=== PATIENT | male | born 1965 | race Caucasian/White ===

== ENCOUNTER 2019-02-26 16:33 | Outpatient (CLI) | payer OTHER, SELFPAY ==
--- NOTE | 2019-02-26 16:32 | DI.RAD_ITS ---
SYMPTOM/DIAGNOSIS: NUMBNESS OF HAND, S/P FALL, R20.0, FALLING INJURY, W19.XXXA RIGHT WRIST: Three views. No priors. There is a nondisplaced transverse fracture through the distal metaphysis of the right radius. No other fracture or dislocation is seen. There is mild soft tissue swelling about the wrist. IMPRESSION: Nondisplaced distal right radial fracture. CERVICAL SPINE: Odontoid, AP, lateral and bilateral oblique views. No priors. The odontoid is intact. The lateral masses are well aligned. There is normal alignment of the cervical spine. No acute fractures or subluxations are seen. No significant neural encroachment is present. The prevertebral soft tissues are unremarkable. IMPRESSION: No acute fracture or subluxation in the cervical spine.
[2019-02-26 17:38] LABS: Iron 17 ug/dL (50-175); Total Iron Binding Capacity 489 ug/dL (250-450); Transferrin Sat 3 % (20-55)
[2019-02-26 17:51] LABS: Ferritin 10 ng/mL (8-388)
== END 2019-02-26 16:53 ==
PROVIDERS: Visit Provider Family Medicine
DX: D64.9 Anemia, unspecified (principal); R20.0 Anesthesia of skin; W19.XXXA Unspecified fall, initial encounter; M25.531 Pain in right wrist; M79.89 Other specified soft tissue disorders; S52.501A Unspecified fracture of the lower end of right radius, initial encounter for closed fracture
CPT/HCPCS: 36415; 72050; 73110; 82728; 83540; 83550

== ENCOUNTER 2019-03-06 12:10 | Outpatient (CLI) | payer OTHER, SELFPAY ==
[2019-03-06 15:10] LABS: TSH (W/Ref FT4) 0.79 uIU/mL (0.358-3.74); Vitamin B12 127 pg/mL (193-986)
== END 2019-03-06 12:30 ==
PROVIDERS: PCP Family Medicine; Visit Provider Family Medicine
DX: D64.9 Anemia, unspecified (principal); R53.83 Other fatigue
CPT/HCPCS: 36415; 82607; 82728; 83540; 83550; 84443; 85025

== ENCOUNTER 2019-03-19 01:36 | Outpatient (RCR) | payer OTHER, SELFPAY ==
[2019-03-10] MEDS: Normal Saline Flush 10 ML SYR IVP (12:00)
== END 2019-03-19 23:59 | disposition home or self-care (01) ==
LOC: INF 01:36
PROVIDERS: PCP Family Medicine; Visit Provider Internal Medicine
DX: D50.9 Iron deficiency anemia, unspecified (principal)
CPT/HCPCS: 96365; J1756

== ENCOUNTER 2019-03-31 00:58 | Outpatient (RCR) | payer OTHER, SELFPAY ==
[2019-03-24] MEDS: Normal Saline Flush 10 ML SYR IVP (12:10)
[2019-03-31] MEDS: Normal Saline Flush 10 ML SYR IVP (12:31)
== END 2019-04-19 23:59 | disposition home or self-care (01) ==
LOC: INF 00:58
PROVIDERS: PCP Family Medicine; Visit Provider Internal Medicine
DX: D50.9 Iron deficiency anemia, unspecified (principal)
CPT/HCPCS: 96365; 96366; J1756

== ENCOUNTER 2020-05-20 17:26 | Outpatient (REF) | payer OTHER, SELFPAY ==
[2020-05-20 13:38] LABS: Abs Immature Grans 0.01 10^3/uL (0.0-0.06); Absolute Basophil Count 0.02 10^3/uL (0.0-0.2); Absolute Eosinophil Count 0.25 10^3/uL (0.0-0.7); Absolute Lymphocyte Count 1.33 10^3/uL (1.2-3.4); Absolute Monocyte Count 0.34 10^3/uL (0.1-0.8); Absolute Neutrophil Count 2.82 10^3/uL (1.2-6.7); Basophils % 0.4; Eosinophils % 5.2; HCT 41.2 % (40.0-50.0); HGB 13.4 g/dL (13.5-17.5); Immature Grans % 0.2; Lymphocytes % 27.9; MCH 27.5 pg (27.0-33.0); MCHC 32.5 % (32.0-36.0); MCV 84.4 fL (80-95); MPV 9.9 fL (8.0-11.0); Monocytes % 7.1; Neutrophils % 59.2; Nucleated RBC 0 %; Platelet Count 278 10^3/uL (130-400); RBC 4.88 10^6/uL (4.36-5.78); RDW 13.5 % (11.8-14.1); RDW-SD 41.4 fL; WBC 4.77 10^3/uL (4.4-10.8)
[2020-05-20 13:59] LABS: Total Iron Binding Capacity 436 ug/dL (250-450)
[2020-05-20 14:21] LABS: ALT 30 U/L (16-63); AST 18 U/L (15-37); Albumin 3.5 g/dL (3.4-5.0); Alkaline Phosphatase 53 U/L (46-116); Anion Gap 6.5 mmol/L (3-11); BUN 11 mg/dL (7-18); Bilirubin, Total 0.4 mg/dL (0.2-1.0); CO2 29.5 mmol/L (21.0-32.0); CREATININE 0.88 mg/dL (0.70-1.30); Calcium 8.7 mg/dL (8.5-10.1); Calculated LDL 122 mg/dL (<100); Chloride 107 mmol/L (98-107); Cholesterol 199 mg/dL (<200); Ferritin 8 ng/mL (26-388); Glucose 99 mg/dL (74-106); HDL Cholesterol 59 mg/dL (40-60); Potassium 4.1 mmol/L (3.5-5.1); Sodium 143 mmol/L (136-145); Total Protein 6.4 g/dL (6.4-8.2); Triglyceride 92 mg/dL (<150); Vitamin B12 119 pg/mL (193-986)
[2020-05-20 21:40] LABS: PSA, Screening 0.4 ng/mL (0.0-3.5)
== END 2020-05-20 17:46 ==
LOC: LBN 17:26
PROVIDERS: PCP Nurse Practitioner Family; Visit Provider Nurse Practitioner Family
DX: D50.9 Iron deficiency anemia, unspecified (principal); E53.8 Deficiency of other specified B group vitamins; E66.09 Other obesity due to excess calories; Z12.5 Encounter for screening for malignant neoplasm of prostate
CPT/HCPCS: 80053; 80061; 84153; 82607; 82728; 83036; 83550; 85025

== ENCOUNTER 2020-06-07 01:34 | Outpatient (RCR) | payer OTHER, SELFPAY ==
[2020-05-25] MEDS: IRON SUCROSE COMPLEX 200 MG in Normal Saline 100 ML 440 MG IVPB (08:47)
[2020-05-25] MEDS: Normal Saline Flush 10 ML SYR IVP (08:54)
[2020-05-28] MEDS: IRON SUCROSE COMPLEX 200 MG in Normal Saline 100 ML 440 MG IVPB (10:48)
[2020-05-28] MEDS: Normal Saline Flush 10 ML SYR IVP (10:48)
[2020-06-01] MEDS: Normal Saline Flush 10 ML SYR IVP (13:54)
[2020-06-01] MEDS: IRON SUCROSE COMPLEX 200 MG in Normal Saline 100 ML 440 MG IVPB (13:54)
[2020-06-03] MEDS: IRON SUCROSE COMPLEX 200 MG in Normal Saline 100 ML 440 MG IVPB (10:35)
[2020-06-03] MEDS: Normal Saline Flush 10 ML SYR IVP (10:35)
[2020-06-07] MEDS: Normal Saline Flush 10 ML SYR IVP (10:17)
[2020-06-07] MEDS: IRON SUCROSE COMPLEX 200 MG in Normal Saline 100 ML 440 MG IVPB (10:17)
== END 2020-06-19 23:59 | disposition home or self-care (01) ==
LOC: INF 01:34
PROVIDERS: PCP Nurse Practitioner Family; Visit Provider Nurse Practitioner Family
DX: D50.9 Iron deficiency anemia, unspecified (principal)
CPT/HCPCS: 96365; J1756

== ENCOUNTER 2020-06-14 11:27 | Outpatient (REF) | payer OTHER, SELFPAY ==
[2020-06-14 13:31] LABS: HCT 45.8 % (40.0-50.0); HGB 15.2 g/dL (13.5-17.5); MCH 28.1 pg (27.0-33.0); MCHC 33.2 % (32.0-36.0); MCV 84.7 fL (80-95); MPV 9.6 fL (8.0-11.0); Platelet Count 272 10^3/uL (130-400); RBC 5.41 10^6/uL (4.36-5.78); RDW 15.9 % (11.8-14.1); RDW-SD 48.9 fL; WBC 4.98 10^3/uL (4.4-10.8)
[2020-06-14 13:33] LABS: Total Iron Binding Capacity 354 ug/dL (250-450)
[2020-06-14 13:47] LABS: ALT 24 U/L (16-63); AST 17 U/L (15-37); Albumin 3.9 g/dL (3.4-5.0); Alkaline Phosphatase 69 U/L (46-116); Anion Gap 8.2 mmol/L (3-11); BUN 16 mg/dL (7-18); Bilirubin, Total 0.6 mg/dL (0.2-1.0); CO2 24.8 mmol/L (21.0-32.0); CREATININE 1.03 mg/dL (0.70-1.30); Calcium 8.9 mg/dL (8.5-10.1); Chloride 103 mmol/L (98-107); Ferritin 199 ng/mL (26-388); Glucose 114 mg/dL (74-106); Potassium 4.4 mmol/L (3.5-5.1); Sodium 136 mmol/L (136-145); Total Protein 7.1 g/dL (6.4-8.2)
== END 2020-06-14 11:47 ==
LOC: LBN 11:27
PROVIDERS: PCP Nurse Practitioner Family; Visit Provider Nurse Practitioner Family
DX: D50.9 Iron deficiency anemia, unspecified (principal)
CPT/HCPCS: 80053; 85027; 82728; 83550

== ENCOUNTER 2020-07-22 10:14 | Outpatient (REF) | payer OTHER, SELFPAY ==
[2020-07-22 15:21] LABS: HCT 45.2 % (40.0-50.0); HGB 15.1 g/dL (13.5-17.5); MCH 29.3 pg (27.0-33.0); MCHC 33.4 % (32.0-36.0); MCV 87.8 fL (80-95); Platelet Count 254 10^3/uL (130-400); RBC 5.15 10^6/uL (4.36-5.78); RDW 16.6 % (11.8-14.1); RDW-SD 52.6 fL; WBC 5.22 10^3/uL (4.4-10.8)
[2020-07-22 15:36] LABS: Total Iron Binding Capacity 343 ug/dL (250-450)
[2020-07-22 15:49] LABS: Ferritin 102 ng/mL (26-388)
== END 2020-07-22 10:34 ==
LOC: LBN 10:14
PROVIDERS: PCP Nurse Practitioner Family; Visit Provider Nurse Practitioner Family
DX: D50.9 Iron deficiency anemia, unspecified (principal)
CPT/HCPCS: 84402; 84403; 85027; 82728; 83550

== ENCOUNTER 2020-07-22 15:37 | Outpatient (CLI) | payer OTHER, SELFPAY ==
[2020-07-27 12:50] LABS: Testosterone, Free 5.37 ng/dL (4.06-15.6); Testosterone, Total 244 ng/dL (240-950)
== END 2020-07-22 15:57 ==
PROVIDERS: PCP Nurse Practitioner Family; Visit Provider Nurse Practitioner Family
DX: D50.9 Iron deficiency anemia, unspecified (principal); R53.83 Other fatigue
CPT/HCPCS: 84402; 84403

== ENCOUNTER 2020-09-23 15:03 | Outpatient (REF) | payer OTHER, SELFPAY ==
[2020-09-23 13:42] LABS: HCT 44.2 % (40.0-50.0); HGB 15.5 g/dL (13.5-17.5); MCH 31.6 pg (27.0-33.0); MCHC 35.1 % (32.0-36.0); MCV 90.2 fL (80-95); MPV 9.1 fL (8.0-11.0); Platelet Count 271 10^3/uL (130-400); RDW 12.8 % (11.8-14.1); RDW-SD 41.8 fL; WBC 5.15 10^3/uL (4.4-10.8)
[2020-09-23 14:34] LABS: Ferritin 101 ng/mL (26-388); Vitamin B12 475 pg/mL (193-986)
[2020-09-23 14:40] LABS: Total Iron Binding Capacity 382 ug/dL (250-450)
[2020-09-23 15:03] LABS: Vitamin D 25 Total 30.3 ng/ml (30-100)
[2020-09-23 21:40] LABS: FSH 52.2 mIU/mL (1.4-18.1)
[2020-09-23 21:41] LABS: LH 18.7 mIU/mL (1.5-9.3)
[2020-09-26 14:51] LABS: Testosterone, Free 4.71 ng/dL (4.06-15.6); Testosterone, Total 248 ng/dL (240-950)
== END 2020-09-23 15:04 | disposition home or self-care (01) ==
LOC: NCHCN 15:03
PROVIDERS: PCP Nurse Practitioner Family; Visit Provider Nurse Practitioner Family
DX: R79.89 Other specified abnormal findings of blood chemistry (principal); D50.9 Iron deficiency anemia, unspecified; E53.8 Deficiency of other specified B group vitamins; F32.9 Major depressive disorder, single episode, unspecified
CPT/HCPCS: 82306; 84402; 84403; 85027; 82607; 82728; 83001; 83002; 83550

== ENCOUNTER 2020-10-08 02:38 | Outpatient (CLI) | payer OTHER, SELFPAY ==
[2020-10-13 10:11] LABS: Testosterone, Free 5.83 ng/dL (4.06-15.6); Testosterone, Total 265 ng/dL (240-950)
== END 2020-10-08 02:39 | disposition home or self-care (01) ==
LOC: LBO 02:39
PROVIDERS: PCP Nurse Practitioner Family; Visit Provider Nurse Practitioner Family
DX: E29.1 Testicular hypofunction (principal)
CPT/HCPCS: 36415; 84402; 84403

== ENCOUNTER 2020-10-15 02:12 | Outpatient (CLI) | payer OTHER, SELFPAY ==
[2020-10-20 11:32] LABS: Testosterone, Free 3.67 ng/dL (4.06-15.6); Testosterone, Total 204 ng/dL (240-950)
== END 2020-10-15 02:13 | disposition home or self-care (01) ==
LOC: LBO 02:12
PROVIDERS: PCP Nurse Practitioner Family; Visit Provider Nurse Practitioner Family
DX: E29.1 Testicular hypofunction (principal)
CPT/HCPCS: 36415; 84402; 84403

== ENCOUNTER 2020-12-08 01:24 | Outpatient (CLI) | payer OTHER, SELFPAY ==
--- NOTE | 2020-12-08 08:00 | DI.DEXA_ITS ---
EXAM: XR DEXA BONE DENSITY W/WO DOMINICK CLINICAL HISTORY: hx of multiple fractures, male hypogonadism,E29.1 TECHNIQUE: Routine DEXA evaluation of the lumbar spine, hip, or forearm. COMPARISON: No exams were available for comparison FINDINGS: Performed on a Hologic unit. Lateral image: No compression fracture evident. Lumbar Spine total T-score: -1.2 Hip total T-score:-0.7 Independent reading at the femoral neck yields a T-score of -1.6 IMPRESSION: Bone mineral density measures in the osteopenia range. Fracture risk is moderate. Note: Any spine fracture indicates 5x risk for subsequent spine fracture and 2x risk for subsequent h ip fracture. World Health Organization criteria for BMD interpretation classify patients: Normal...... T- Score at or above -1.0 Osteopenic... T- Score between -1.0 and -2.5 Osteoporosis... T-Score at or below -2.5
== END 2020-12-08 01:44 ==
PROVIDERS: PCP Nurse Practitioner Family; Visit Provider Nurse Practitioner Family
DX: M85.88 Other specified disorders of bone density and structure, other site (principal); E29.1 Testicular hypofunction; Z87.81 Personal history of (healed) traumatic fracture
CPT/HCPCS: 77080

== ENCOUNTER 2021-01-18 03:01 | Outpatient (CLI) | payer OTHER, SELFPAY ==
[2021-01-18 08:42] LABS: HCT 47.1 % (40.0-50.0); HGB 15.9 g/dL (13.5-17.5); MCH 28.9 pg (27.0-33.0); MCHC 33.8 % (32.0-36.0); MCV 85.6 fL (80-95); MPV 9.1 fL (8.0-11.0); Platelet Count 289 10^3/uL (130-400); RDW 13.4 % (11.8-14.1); WBC 5.26 10^3/uL (4.4-10.8)
[2021-01-18 09:17] LABS: Total Iron Binding Capacity 379 ug/dL (250-450)
[2021-01-18 09:30] LABS: ALT 21 U/L (16-63); AST 17 U/L (15-37); Albumin 3.5 g/dL (3.4-5.0); Alkaline Phosphatase 77 U/L (46-116); Anion Gap 9.5 mmol/L (3-11); BUN 10 mg/dL (7-18); Bilirubin, Total 0.5 mg/dL (0.2-1.0); CO2 27.5 mmol/L (21.0-32.0); CREATININE 0.9 mg/dL (0.70-1.30); Calculated LDL 123 mg/dL (<100); Chloride 106 mmol/L (98-107); Cholesterol 206 mg/dL (<200); Ferritin 19 ng/mL (26-388); Glucose 95 mg/dL (74-106); HDL Cholesterol 59 mg/dL (40-60); Potassium 4.4 mmol/L (3.5-5.1); Sodium 143 mmol/L (136-145); Total Protein 6.8 g/dL (6.4-8.2); Triglyceride 120 mg/dL (<150)
[2021-01-18 09:39] LABS: Calcium 8.7 mg/dL (8.5-10.1)
[2021-01-19 11:27] LABS: Lyme Ab w Rflx to Lyme Confirm Negative (Negative)
[2021-01-24 09:33] LABS: Testosterone, Free 15.1 ng/dL (3.87-14.7); Testosterone, Total 488 ng/dL (240-950)
[2021-01-24 10:10] LABS: Anaplasma phagocytophilum Negative (Negative); B. miyamotoi PCR Negative (Negative); Babesia divergens/MO-1 Negative (Negative); Babesia duncani Negative (Negative); Babesia microti Negative (Negative); Ehrlichia chaffeensis Negative (Negative); Ehrlichia ewingii/canis Negative (Negative); Ehrlichia muris eauclairensis Negative (Negative)
== END 2021-01-18 03:02 | disposition home or self-care (01) ==
LOC: LBO 03:01
PROVIDERS: PCP Nurse Practitioner Family; Visit Provider Nurse Practitioner Family
DX: E29.1 Testicular hypofunction (principal); D50.9 Iron deficiency anemia, unspecified; R53.83 Other fatigue; Z12.5 Encounter for screening for malignant neoplasm of prostate
CPT/HCPCS: 36415; 80053; 80061; 84153; 84402; 84403; 85027; 87798; 82728; 83550; 86618

== ENCOUNTER 2021-01-19 09:20 | Outpatient (REF) | payer OTHER, SELFPAY ==
[2021-01-19 10:38] LABS: Iron 44 ug/dL (65-175)
== END 2021-01-19 09:21 | disposition home or self-care (01) ==
LOC: LBN 09:20
PROVIDERS: PCP Nurse Practitioner Family; Visit Provider Nurse Practitioner Family
DX: D50.9 Iron deficiency anemia, unspecified (principal)
CPT/HCPCS: 83540

== ENCOUNTER 2021-05-02 04:10 | Outpatient (CLI) | payer OTHER, SELFPAY ==
[2021-05-02 07:34] LABS: HCT 47.3 % (40.0-50.0); HGB 15.5 g/dL (13.5-17.5); MCH 28.5 pg (27.0-33.0); MCHC 32.8 % (32.0-36.0); MCV 87.1 fL (80-95); MPV 8.8 fL (8.0-11.0); Platelet Count 245 10^3/uL (130-400); RBC 5.43 10^6/uL (4.36-5.78); RDW 13.5 % (11.8-14.1); RDW-SD 43.5 fL; WBC 5.67 10^3/uL (4.4-10.8)
[2021-05-02 08:37] LABS: Iron 84 ug/dL (65-175); Total Iron Binding Capacity 400 ug/dL (250-450)
[2021-05-02 08:48] LABS: ALT 22 U/L (16-63); AST 18 U/L (15-37); Albumin 3.6 g/dL (3.4-5.0); Alkaline Phosphatase 70 U/L (46-116); BUN 12 mg/dL (7-18); Bilirubin, Total 0.7 mg/dL (0.2-1.0); CREATININE 1.1 mg/dL (0.70-1.30); Calcium 8.7 mg/dL (8.5-10.1); Chloride 106 mmol/L (98-107); Ferritin 19 ng/mL (26-388); Glucose 102 mg/dL (74-106); Potassium 4.1 mmol/L (3.5-5.1); Sodium 143 mmol/L (136-145); Total Protein 6.7 g/dL (6.4-8.2)
[2021-05-02 17:08] LABS: LH 0.4 mIU/mL (1.5-9.3)
[2021-05-07 16:33] LABS: Testosterone, Total 761 ng/dL (240-950)
== END 2021-05-02 04:11 | disposition home or self-care (01) ==
LOC: LBO 04:11
PROVIDERS: PCP Nurse Practitioner Family; Visit Provider Nurse Practitioner Family
DX: D50.9 Iron deficiency anemia, unspecified (principal); E29.1 Testicular hypofunction
CPT/HCPCS: 36415; 80053; 84403; 85027; 82728; 83002; 83540; 83550

== ENCOUNTER 2021-06-13 00:48 | Outpatient (RCR) | payer OTHER, SELFPAY ==
[2021-06-02] MEDS: IRON SUCROSE COMPLEX 200 MG in Normal Saline 100 ML 440 MG IVPB (11:13)
[2021-06-02] MEDS: Normal Saline Flush 10 ML SYR IVP (11:13)
[2021-06-06] MEDS: Normal Saline Flush 10 ML SYR IVP (11:08)
[2021-06-06] MEDS: IRON SUCROSE COMPLEX 200 MG in Normal Saline 100 ML 440 MG IVPB (11:23)
[2021-06-08] MEDS: IRON SUCROSE COMPLEX 200 MG in Normal Saline 100 ML 440 MG IVPB (10:49)
[2021-06-08] MEDS: Normal Saline Flush 10 ML SYR IVP (10:52)
[2021-06-10] MEDS: Normal Saline Flush 10 ML SYR IVP (11:05)
[2021-06-10] MEDS: IRON SUCROSE COMPLEX 200 MG in Normal Saline 100 ML 440 MG IVPB (11:08)
[2021-06-13] MEDS: Normal Saline Flush 10 ML SYR IVP (11:03)
[2021-06-13] MEDS: IRON SUCROSE COMPLEX 200 MG in Normal Saline 100 ML 440 MG IVPB (11:03)
== END 2021-06-19 23:59 | disposition home or self-care (01) ==
LOC: INF 00:48
PROVIDERS: PCP Nurse Practitioner Family; Visit Provider Nurse Practitioner Acute Care
DX: D50.9 Iron deficiency anemia, unspecified (principal)
CPT/HCPCS: 96365; J1756

== ENCOUNTER 2021-07-08 09:42 | Outpatient (CLI) | payer OTHER, SELFPAY ==
--- NOTE | 2021-07-08 09:45 | RT.EKG_ITS ---
APPROVED REPORT Exam: Resting ECG Reason for Exam: Clearance for ECT Patient Location: O HR:83 bpm ECG Measurements Heart Rate 83 AXIS LA 157 P 47 QRSd 88 QRS 33 QT 358 T 30 QTc 418 Conclusion Sinus rhythm...normal P axis, V-rate 60- 99 Atrial premature complex...SV complex w/ short R-R interval
== END 2021-07-08 09:43 | disposition home or self-care (01) ==
PROVIDERS: PCP Nurse Practitioner Family; Visit Provider Nurse Practitioner Family
DX: R63.4 Abnormal weight loss (principal); F32.9 Major depressive disorder, single episode, unspecified
CPT/HCPCS: 93010

== ENCOUNTER 2021-12-27 19:09 | Outpatient (REF) | payer OTHER, SELFPAY ==
[2021-12-27 08:52] LABS: Source Nasal/Nares
[2021-12-27 09:35] LABS: COVID-19 PCR Negative (Negative)
== END 2021-12-27 19:10 | disposition home or self-care (01) ==
LOC: LBN 19:09
PROVIDERS: PCP Nurse Practitioner Family; Visit Provider Nurse Practitioner Family
DX: Z20.822 Contact with and (suspected) exposure to COVID-19 (principal)
CPT/HCPCS: 87635

== ENCOUNTER 2021-12-28 01:44 | Outpatient (CLI) | payer OTHER, SELFPAY ==
[2021-12-28 07:35] LABS: Abs Immature Grans 0.01 10^3/uL (0.0-0.06); Absolute Basophil Count 0.03 10^3/uL (0.0-0.2); Absolute Eosinophil Count 0.28 10^3/uL (0.0-0.7); Absolute Lymphocyte Count 1.83 10^3/uL (1.2-3.4); Absolute Neutrophil Count 2.83 10^3/uL (1.2-6.7); Basophils % 0.5; HCT 50.8 % (40.0-50.0); HGB 17.3 g/dL (13.5-17.5); Immature Grans % 0.2; Lymphocytes % 32.8; MCH 30.5 pg (27.0-33.0); MCHC 34.1 % (32.0-36.0); MCV 90 fL (80-95); MPV 8.6 fL (8.0-11.0); Monocytes % 10.8; Neutrophils % 50.7; Platelet Count 243 10^3/uL (130-400); RBC 5.67 10^6/uL (4.36-5.78); RDW 12.9 % (11.8-14.1); RDW-SD 42.3 fL; WBC 5.58 10^3/uL (4.4-10.8)
[2021-12-28 08:37] LABS: ALT 22 U/L (16-63); AST 13 U/L (15-37); Albumin 3.6 g/dL (3.4-5.0); Alkaline Phosphatase 52 U/L (46-116); Anion Gap 10.4 mmol/L (3-11); BUN 11 mg/dL (7-18); Bilirubin, Total 0.5 mg/dL (0.2-1.0); CO2 24.6 mmol/L (21.0-32.0); CREATININE 0.9 mg/dL (0.70-1.30); Calcium 8.3 mg/dL (8.5-10.1); Chloride 107 mmol/L (98-107); Ferritin 38 ng/mL (26-388); Glucose 89 mg/dL (74-106); Potassium 4.3 mmol/L (3.5-5.1); Sodium 142 mmol/L (136-145); TSH (W/Ref FT4) 2.38 uIU/mL (0.36-3.74); Total Protein 6.8 g/dL (6.4-8.2)
[2021-12-28 08:47] LABS: Total Iron Binding Capacity 384 ug/dL (250-450)
== END 2021-12-28 01:45 | disposition home or self-care (01) ==
LOC: LBO 01:44
PROVIDERS: PCP Nurse Practitioner Family; Visit Provider Nurse Practitioner Family
DX: D50.9 Iron deficiency anemia, unspecified (principal); R63.4 Abnormal weight loss
CPT/HCPCS: 36415; 80053; 82728; 83550; 84443; 85025

== ENCOUNTER 2022-05-19 02:03 | Outpatient (CLI) | payer OTHER, SELFPAY ==
[2022-05-19 08:07] LABS: Abs Immature Grans 0.01 10^3/uL (0.0-0.06); Absolute Basophil Count 0.02 10^3/uL (0.0-0.2); Absolute Eosinophil Count 0.22 10^3/uL (0.0-0.7); Absolute Lymphocyte Count 1.39 10^3/uL (1.2-3.4); Absolute Monocyte Count 0.42 10^3/uL (0.1-0.8); Absolute Neutrophil Count 3.36 10^3/uL (1.2-6.7); Basophils % 0.4; Eosinophils % 4.1; HCT 46.2 % (40.0-50.0); Immature Grans % 0.2; Lymphocytes % 25.6; MCH 29.8 pg (27.0-33.0); MCHC 34.6 % (32.0-36.0); MCV 86 fL (80-95); MPV 8.8 fL (8.0-11.0); Monocytes % 7.7; Platelet Count 211 10^3/uL (130-400); RBC 5.37 10^6/uL (4.36-5.78); RDW 13.3 % (11.8-14.1); RDW-SD 41.5 fL; WBC 5.42 10^3/uL (4.4-10.8)
[2022-05-19 08:25] LABS: Hemoglobin A1C 5.5 % (<5.7)
[2022-05-19 09:14] LABS: ALT 25 U/L (16-63); AST 19 U/L (15-37); Albumin 3.7 g/dL (3.4-5.0); Alkaline Phosphatase 56 U/L (46-116); BUN 15 mg/dL (7-18); Bilirubin, Total 0.6 mg/dL (0.2-1.0); Calcium 8.8 mg/dL (8.5-10.1); Chloride 103 mmol/L (98-107); Estimated GFR 88.33 (mL/min/1.73m2); Ferritin 46 ng/mL (26-388); Glucose 104 mg/dL (74-106); Potassium 3.9 mmol/L (3.5-5.1); Sodium 138 mmol/L (136-145); TSH (W/Ref FT4) 1.93 uIU/mL (0.36-3.74); Vitamin B12 222 pg/mL (193-986)
[2022-05-22 06:45] LABS: Vitamin D 25 Total 26.2 ng/mL (30-100)
[2022-05-26 17:10] LABS: Testosterone, Free 24.1 ng/dL (3.87-14.7); Testosterone, Total 721 ng/dL (240-950)
== END 2022-05-19 02:04 | disposition home or self-care (01) ==
LOC: LBO 02:03
PROVIDERS: PCP Nurse Practitioner Family; Visit Provider Nurse Practitioner Family
DX: E29.1 Testicular hypofunction (principal); E53.8 Deficiency of other specified B group vitamins; D50.9 Iron deficiency anemia, unspecified; R73.03 Prediabetes
CPT/HCPCS: 36415; 80053; 82306; 84402; 84403; 82607; 82728; 83036; 84443; 85025

== ENCOUNTER → 2022-07-24 12:29 | Outpatient (CLI) | payer OTHER, SELFPAY ==
--- NOTE | 2022-07-24 09:30 | DI.RAD_ITS ---
Exam(s) XR ARTHRITIS SERIES EXAM: XR ARTHRITIS SERIES CLINICAL HISTORY: arthritis of hands,chronic hand pain, arthralgia, m25.542,m25.541, m79.643. TECHNIQUE: 2D digital imaging was performed. Two views of both hands. COMPARISON: No exams were available for comparison FINDINGS: BONES: No acute fracture is present. No bony destructive lesion is seen. Old appearing deformity at the base of the proximal phalanx of the left index finger. JOINTS: No dislocation present. Mild to moderate narrowing and mild periarticular spurring at the in terphalangeal joints greater distally. SOFT TISSUE: Normal. 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 No bony erosio ns. DATA REPOSITORY: RADIATION DOSE DELIVERED:
== END ==
PROVIDERS: PCP Nurse Practitioner Family; Visit Provider Nurse Practitioner Family
DX: M25.541 Pain in joints of right hand (principal); M25.542 Pain in joints of left hand; G89.29 Other chronic pain; M19.041 Primary osteoarthritis, right hand; M19.042 Primary osteoarthritis, left hand
CPT/HCPCS: 73120

== ENCOUNTER 2022-07-24 12:52 | Outpatient (CLI) | payer OTHER, SELFPAY ==
[2022-07-24 10:40] LABS: ESR < 1 mm/hr (0-20)
[2022-07-24 17:26] LABS: CRP, High Sensitivity 0.38 mg/L (See Note); Rheumatoid Factor <8.6 IU/mL (<12.0)
[2022-07-25 14:38] LABS: ANA Interpretation Negative (Negative)
[2022-07-27 16:40] LABS: Testosterone, Free 14.8 ng/dL (3.87-14.7); Testosterone, Total 513 ng/dL (240-950)
== END 2022-07-24 12:53 | disposition home or self-care (01) ==
LOC: LBO 12:52
PROVIDERS: PCP Nurse Practitioner Family; Visit Provider Nurse Practitioner Family
DX: E29.1 Testicular hypofunction (principal); M25.541 Pain in joints of right hand; M25.542 Pain in joints of left hand
CPT/HCPCS: 36415; 84402; 84403; 85652; 86141; 86038; 86431

== ENCOUNTER 2023-06-18 03:17 | Outpatient (CLI) | payer OTHER, SELFPAY ==
[2023-06-18 12:30] LABS: Abs Immature Grans 0.01 10^3/uL (0.0-0.06); Absolute Basophil Count 0.02 10^3/uL (0.0-0.2); Absolute Eosinophil Count 0.12 10^3/uL (0.0-0.7); Absolute Lymphocyte Count 1.18 10^3/uL (1.2-3.4); Absolute Monocyte Count 0.33 10^3/uL (0.1-0.8); Absolute Neutrophil Count 1.94 10^3/uL (1.2-6.7); Basophils % 0.6; Eosinophils % 3.3; HCT 43.9 % (40.0-50.0); HGB 14.4 g/dL (13.5-17.5); Immature Grans % 0.3; Lymphocytes % 32.8; MCH 28.5 pg (27.0-33.0); MCHC 32.8 % (32.0-36.0); MCV 87 fL (80-95); Monocytes % 9.2; Neutrophils % 53.8; Platelet Count 218 10^3/uL (130-400); RBC 5.05 10^6/uL (4.36-5.78); RDW 14.2 % (11.8-14.1); RDW-SD 45.8 fL
[2023-06-18 12:41] LABS: Hemoglobin A1C 5.4 % (<5.7)
[2023-06-18 12:51] LABS: ALT 18 U/L (16-63); AST 7 U/L (15-37); Albumin 3.7 g/dL (3.4-5.0); Alkaline Phosphatase 56 U/L (46-116); BUN 17 mg/dL (7-18); Bilirubin, Total 0.4 mg/dL (0.2-1.0); CREATININE 0.9 mg/dL (0.70-1.30); Calcium 9.1 mg/dL (8.5-10.1); Calculated LDL 94 mg/dL (<100); Chloride 106 mmol/L (98-107); Cholesterol 164 mg/dL (<200); Estimated GFR 99.62 (mL/min/1.73m2); Glucose 94 mg/dL (74-106); HDL Cholesterol 62 mg/dL (40-60); Potassium 4.1 mmol/L (3.5-5.1); Sodium 144 mmol/L (136-145); TSH (W/Ref FT4) 1.64 uIU/mL (0.36-3.74); Total Protein 6.8 g/dL (6.4-8.2); Triglyceride 44 mg/dL (<150)
[2023-06-19 09:58] LABS: Hepatitis C Ab w Rflx HCV PCR Negative (Negative)
[2023-06-21 13:01] LABS: Testosterone, Total 771 ng/dL (240-950)
== END 2023-06-18 03:18 | disposition home or self-care (01) ==
PROVIDERS: PCP Nurse Practitioner Family; Visit Provider Nurse Practitioner Family
DX: Z00.00 Encounter for general adult medical examination without abnormal findings (principal)
CPT/HCPCS: 36415; 80053; 80061; 84403; 86803; 83036; 84443; 85025

== ENCOUNTER 2023-10-22 05:18 | Outpatient (CLI) | payer OTHER, SELFPAY ==
[2023-10-22 17:56] LABS: PSA, Screening 0.5 ng/mL (<=3.5)
[2023-10-30 08:55] LABS: Testosterone, Free 13.5 ng/dL (3.87-14.7); Testosterone, Total 581 ng/dL (240-950)
== END 2023-10-22 05:19 | disposition home or self-care (01) ==
LOC: LOS 05:19
PROVIDERS: PCP Nurse Practitioner Family; Visit Provider Nurse Practitioner Family
DX: E29.1 Testicular hypofunction (principal); Z12.5 Encounter for screening for malignant neoplasm of prostate
CPT/HCPCS: 36415; 84153; 84402; 84403